=== PATIENT | male | born 1985 | race American Indian/Alaskan Native ===

== ENCOUNTER 2017-11-13 15:00 | Emergency (ER) | payer OTHER ==
[2017-11-13 15:03] VITALS: RESP 16
--- NOTE | 2017-11-13 15:54 | ED PDOC ---
HPI: Psych/Substance Abuse Time Seen by Provider: 11/13/17 15:36 Chief Complaint (Nursing): Medical Clearance Chief Complaint (Provider): crisis eval History Per: Patient, Other (Police) Additional Complaint(s): 32-year-old male with history of schizo-affective disorder presents for medical and psychiatric clearance prior to incarceration. She is currently under arrest and in police custody. He states he has been noncompliant with psychiatric meds for several years and has been self-medicating with marijuana next see. Upon arrival patient states that he feels suicidal but has no plan. He states that suicidal thoughts began when he was placed under arrest 1 hour ago. He offers no medical complaints. PMD: none Past Medical History Reviewed: Historical Data, Nursing Documentation, Vital Signs Vital Signs: Last Vital Signs Temp 98.0 F 11/13/17 15:01 Pulse 59 L 11/13/17 15:01 Resp 16 11/13/17 15:01 BP 104/71 11/13/17 15:01 Pulse Ox 98 11/13/17 15:01 - Medical History PMH: Back Problems Other PMH: schizoaffective disorder - Family History Family History: States: No Known Family Hx - Social History Current smoker - smoking cessation education provided: Yes Alcohol: None Drugs: Cannabis, Other ("ecstacy" tabs) - Home Medications Home Medications: Ambulatory Orders Medication Instructions Recorded Cyclobenzaprine [Cyclobenzaprine 10 mg PO TIDPC #20 tab 07/09/17 HCl] Naproxen 375 mg PO TIDPC #20 tablet 07/09/17 - Allergies Allergies/Adverse Reactions: Allergies Allergy/AdvReac Type Severity Reaction Status Date / Time Penicillins Allergy Severe RASH Verified 11/13/17 15:01 seafood AdvReac Severe RASH Uncoded 11/13/17 15:01 Review of Systems ROS Statement: Except As Marked, All Systems Reviewed And Found Negative Constitutional: Negative for: Fever Cardiovascular: Negative for: Chest Pain Gastrointestinal: Negative for: Nausea, Vomiting Psych: Positive for: Suicidal ideation (x 1 hour, with no plan), Other (h/o schizoaffective, non-compliant with meds) Physical Exam - Reviewed Nursing Documentation Reviewed: Yes Vital Signs Reviewed: Yes - Physical Exam Appears: Positive for: Well, Non-toxic, No Acute Distress Skin: Positive for: Normal Color. Negative for: Rash Eye Exam: Positive for: Normal appearance Cardiovascular/Chest: Positive for: Regular Rate, Rhythm Respiratory: Positive for: Normal Breath Sounds. Negative for: Wheezing, Respiratory Distress Neurologic/Psych: Positive for: Alert, Oriented - ECG O2 Sat by Pulse Oximetry: 98 Pulse Ox Interpretation: Normal Medical Decision Making Medical Decision Makin32 year old here for medical and psychiatric clearance, currently under arrest. Patient offers no medical complaints. As per crisis counselor and psychiatrist weapons electrical engineering officer Dr. Coulter, patient is stable for discharge into police custody. Disposition - Clinical Impression Clinical Impression: Adjustment disorder - Patient ED Disposition Is Patient to be Admitted: No - Disposition Disposition: Discharged/Transfer to Law Enforcement Disposition Time: 16:20 Condition: FAIR Additional Instructions: PATIENT IS MEDICALLY AND PSYCHIATRICALLY STABLE FOR INCARCERATION Instructions: Adjustment Disorder Forms: [facility] (Somali)
[2017-11-13 16:27] VITALS: BP 112/84; PULSE 66; TEMP 98.2
[2017-11-13 16:34] VITALS: O2SAT 98
== END 2017-11-13 16:25 | disposition home or self-care (01) ==
LOC: H.ER 15:00
DX: F43.20 Adjustment disorder, unspecified (principal); F12.90 Cannabis use, unspecified, uncomplicated; F25.9 Schizoaffective disorder, unspecified; Z88.0 Allergy status to penicillin; Z91.14 Patient's other noncompliance with medication regimen

== ENCOUNTER 2018-03-04 00:20 | Emergency (ER) | payer OTHER ==
[2018-03-04 01:19] VITALS: BMI 23.7
[2018-03-04 01:21] VITALS: O2SAT 98
--- NOTE | 2018-03-04 05:38 | ED PDOC ---
History of Present Illness History of Present Illness: 32 yo male with no medical problems presents for evaluation of bodyaches, chills and throat pain x 1 day. No medications [employer]. Pt also reports mild cough without phlegm. HPI: Influenza Time Seen by Provider: 03/04/18 05:11 Chief Complaint: Flu-like Symptoms Past Medical History Reviewed: Historical Data, Nursing Documentation, Vital Signs Vital Signs: Last Vital Signs Temp 99.2 F 03/04/18 01:19 Pulse 75 03/04/18 01:19 Resp 18 03/04/18 01:19 BP 112/70 03/04/18 01:19 Pulse Ox 98 03/04/18 01:19 - Medical History PMH: Back Problems Denies: Diabetes, Hepatitis, HIV, HTN, Seizures, Sexually Transmitted Disease - Surgical History Surgical History: No Surg Hx - Family History Family History: States: No Known Family Hx - Social History Alcohol: None - Immunization History Hx Tetanus Toxoid Vaccination: No Hx Influenza Vaccination: No Hx Pneumococcal Vaccination: No - Home Medications Home Medications: Ambulatory Orders Medication Instructions Recorded Cyclobenzaprine [Cyclobenzaprine 10 mg PO TIDPC #20 tab 07/09/17 HCl] Naproxen 375 mg PO TIDPC #20 tablet 07/09/17 - Allergies Allergies/Adverse Reactions: Allergies Allergy/AdvReac Type Severity Reaction Status Date / Time Penicillins Allergy Severe RASH Verified 03/04/18 01:18 seafood AdvReac Severe RASH Uncoded 03/04/18 01:18 Review of Systems ROS Statement: Except As Marked, All Systems Reviewed And Found Negative Constitutional: Negative for: Fever, Chills ENT: Positive for: Throat Pain. Negative for: Ear Pain, Ear Discharge Respiratory: Positive for: Cough. Negative for: Shortness of Breath, Hemoptysis Physical Exam - Reviewed Nursing Documentation Reviewed: Yes Vital Signs Reviewed: Yes - Physical Exam Appears: Positive for: Well, Non-toxic, No Acute Distress Head Exam: Positive for: ATRAUMATIC, NORMAL INSPECTION, NORMOCEPHALIC Skin: Positive for: Normal Color, Warm, DRY Eye Exam: Positive for: Normal appearance ENT: Positive for: Normal ENT Inspection Neck: Positive for: Normal, Painless ROM Cardiovascular/Chest: Positive for: Regular Rate, Rhythm Respiratory: Positive for: CNT, Normal Breath Sounds Gastrointestinal/Abdominal: Positive for: Normal Exam, Soft Back: Positive for: Normal Inspection Extremity: Positive for: Normal ROM Neurologic/Psych: Positive for: Alert, Oriented Medical Decision Making Medical Decision Making: Endorsed pending influenza and strep. Motrin PO in ER - ECG O2 Sat by Pulse Oximetry: 98 Disposition - Clinical Impression Clinical Impression: Viral illness - Patient ED Disposition Is Patient to be Admitted: Transfer of Care Counseled Patient/Family Regarding: Diagnosis, Need For Followup - Disposition Disposition: Transfer of Care Disposition Time: 06:00 Condition: GOOD
--- NOTE | 2018-03-04 07:24 | ED PDOC ---
- ECG O2 Sat by Pulse Oximetry: 98 (RA) Pulse Ox Interpretation: Normal Medical Decision Making Medical Decision Makin Received endorsement from Dr. Walton pending influenza. Scribe Attestation: Documented by Salome Ambrocio, acting as a scribe for Dbe Gonzalez MD. Provider Scribe Attestation: All medical record entries made by the Scribe were at my direction and personally dictated by me. I have reviewed the chart and agree that the record accurately reflects my personal performance of the history, physical exam, medical decision making, and the department course for this patient. I have also personally directed, reviewed, and agree with the discharge instructions and disposition. Disposition - Clinical Impression Clinical Impression: Viral illness - Disposition Condition: GOOD Forms: [facility] (Arabic)
[2018-03-04 09:07] VITALS: BP 109/57; PULSE 71; RESP 17; TEMP 98.8
== END 2018-03-04 09:06 | disposition home or self-care (01) ==
LOC: H.ER 00:20
DX: Z88.0 Allergy status to penicillin (principal)